=== PATIENT | male | born 1985 | race Caucasian/White ===

== ENCOUNTER 2018-12-10 10:14 | Emergency (ER) | payer SELFPAY ==
[~2018-12-10] VITALS: Ht 177.8 cm; Wt 95.3 kg
[~2018-12-10 10:14] MED LIST: AC500T PO; ACHD5005 PO; AMLO10TA82 PO; AMLO5TAB2 PO; ANTIBOTIC; CIPR250S2 PO; CLON-378 GT; CLON0.1T PO; ENLP10T PO; HYDR-34 PO; HYDR-757 PO; HYDR1CAP2 PO; HYDR1TAB PO; IBP200T PO; IBUP-1780 PO; KETO-22 PO; LISI10TA PO; LISI5TAB PO; MELO7.5T PO; MPR22T TP; NF-SKEL800 PO; NIAC1CAP PO; OXYC-12 PO; OXYC-272 PO; PRD20T PO; SULF1TAB38 PO; TRAM50TA2 PO; VICODIN PO; Vicodin 5/325; [UNRECOGNIZED DRUG - REMARK] PO
[2018-12-10 10:53] LABS: BILIRUBIN,URINE NEGATIVE (NEGATIVE); CLARITY,URINE CLEAR; COLOR,URINE AMBER; GLUCOSE, URINE (UA) NEGATIVE (NEGATIVE); KETONES,URINE NEGATIVE (NEGATIVE); LEUKOCYTE ESTERASE ,URINE NEGATIVE (NEGATIVE); NITRITE,URINE NEGATIVE (NEGATIVE); PH,URINE 5 (5-9); PROTEIN,URINE 1+ (NEGATIVE); UROBILINOGEN,URINE NORMAL (NORMAL)
[2018-12-10 11:00] LABS: BACTERIA,URINE NEGATIVE /HPF; HYALINE CASTS, URINE RARE /LPF; SQUAMOUS EPITHELIAL CELL,UR RARE /HPF
--- NOTE | 2018-12-10 11:08 | ED GU-Male ---
General Chief Complaint: -Male Stated Complaint: GROIN PAIN Nursing Triage Note: PT AMBULATED TO ROOM 7 PT CO OF TESTICULAR PAIN RATES 7/10 FOR 1.5 WEEKS, PT STATES HAS 3 YEAR HX OF PAIN IN TESTICLE. PT HAD STD FEW WEEKS AGO AND HAS NAUSEA NOT ABLE TO FINISH PO ANTIBIOTIC. PT STATES SMOKED POT LAST NIGHT AND HAS TAKEN OXYCODONE THIS AM Source: patient Exam Limitations: no limitations History of Present Illness Date Seen by Provider: Dec 10, 2018 Time Seen by Provider: 11:03 Initial Comments 33-year-old male who presents to the emergency room with complaints of bilateral testicular pain for one and half weeks. He reports that he was treated for STDs 2 weeks ago at the [facility] but the doxycycline that they put him on caused severe nausea and he did not finish the antibiotic. He reports that the antibiotics did help for a little while until they made him nauseated. He reports that he is taken oxycodone this morning for pain and that has helped but the pain is still there. He denies any penile discharge pain and burning with urination Timing/Duration: week (1.5) Severity/Quality: aching Location: scrotal Radiation: none Associated Symptoms: dysuria Allergies and Home Medications Allergies Coded Allergies: No Known Drug Allergies (Unverified , 03/15/13) Home Medications Clonidine HCl 0.1 Mg Tablet, 0.1 MG PO BID Prescribed by: JESSICA KARIMI on 10/18/16 175 Ibuprofen 800 Mg Tablet, 800 MG PO Q8H PRN for PAIN Prescribed by: JESSICA KARIMI on 10/18/16 175 Metaxalone 800 Mg Tablet, 800 MG PO Q6H PRN for SPASMS Prescribed by: TAMMY BENJAMIN on 01/11/16 172 Prednisone 20 Mg Tab, 20 MG PO TID Prescribed by: TAMMY BENJAMIN on 01/11/16 172 Tramadol HCl 50 Mg Tablet, 50-100 MG PO Q6H PRN for LBP Prescribed by: TAMMY BENJAMIN on 01/11/16 172 Patient Home Medication List Home Medication List Reviewed: Yes Review of Systems Review of Systems Constitutional: no symptoms reported, see HPI Genitourinary: see HPI, burning, dysuria, other (testicular pain bilaterally) All Other Systemes Reviewed Negative Unless Noted: Yes Past Sgyhkxq-Uuumwl-Zwgtdq Hx Past Med/Social Hx: Reviewed Nursing Past Med/Soc Hx Patient Social History Alcohol Use: Denies Use Recreational Drug Use: Yes Drug of Choice: POT Smoking Status: Current Everyday Smoker Type Used: Cigarettes Recent Foreign Travel: No Contact w/Someone Who Travel: No Recent Infectious Disease Expo: No Recent Hopitalizations: No Immunizations Up To Date Tetanus Booster (TDap): Less than 5yrs Date of Influenza Vaccine: Jul 07, 2013 Past Medical History Surgeries: Yes (hernia repair) Respiratory: No Cardiac: Yes (DOES NOT TAKE BP MEDS) Hypertension Neurological: No Reproductive Disorders: No Gastrointestinal: No Musculoskeletal: Yes Chronic Back Pain, Fractures Endocrine: No Cancer: No Psychosocial: No Integumentary: Yes (ABSCESSES/hx hives ) Recent Skin Changes Blood Disorders: No Family Medical History Reviewed Nursing Family Hx No Pertinent Family Hx Physical Exam Vital Signs Vital Signs - First Documented 12/10/18 10:20 Temp 96.3 Pulse 107 Resp 20 B/P (MAP) 112/98 (103) Pulse Ox 100 Capillary Refill : Less Than 3 Seconds Height, Weight, BMI Height: 5'10.00" Weight: 210lbs. oz. 95.503550cz; 27.89 BMI Method:Stated General Appearance: WD/WN, no apparent distress Cardiovascular: normal peripheral pulses, regular rate, rhythm, no edema, no gallop, no JVD, no murmur Respiratory: chest non-tender, lungs clear, normal breath sounds, no respiratory distress, no accessory muscle use Male: normal genitalia, testicular tenderness (bilaterally), other (no redness or swelling noted to the testicles cremasteric reflex is present.) Extremities: normal capillary refill Neurologic/Psychiatric: alert, normal mood/affect, oriented x 3 Skin: normal color, warm/dry Progress/Results/Core Measures Suspected Sepsis Recent Fever Within 48 Hours: No Infection Criteria Present: None New/Unexplained Altered Menta: No Sepsis Screen: No Definite Risk SIRS Temperature:96.3 Pulse: 107 Respiratory Rate: 20 Blood Pressure 112 /98 Mean: 103 Results/Orders Lab Results Laboratory Tests Test 12/10/18 10:40 Range/Units Urine Color ARIANNA H Urine Clarity CLEAR Urine pH 5 5-9 Urine Specific [place] 1.030 H 1.016-1.022 Urine Protein 1+ H NEGATIVE Urine Glucose (UA) NEGATIVE NEGATIVE Urine Ketones NEGATIVE NEGATIVE Urine Nitrite NEGATIVE NEGATIVE Urine Bilirubin NEGATIVE NEGATIVE Urine Urobilinogen NORMAL NORMAL MG/DL Urine Leukocyte Esterase NEGATIVE NEGATIVE Urine RBC (Auto) NEGATIVE NEGATIVE Urine RBC NONE /HPF Urine WBC NONE /HPF Urine Squamous Epithelial Cells RARE /HPF Urine Crystals NONE /LPF Urine Bacteria NEGATIVE /HPF Urine Casts PRESENT /LPF Urine Hyaline Casts RARE /LPF Urine Mucus NEGATIVE /LPF Urine Culture Indicated NO Urine Chlamydia trachomatis RNA Not Detected Not Detected Urine Neisseria gonorrhoeae RNA Not Detected Not Detected My Orders Orders - KOREY GALVAN Azithromycin Tablet (Zithromax Tablet) (12/10/18 11:30) Ceftriaxone For Im Use (Rocephin For Im (12/11/18 09:00) Lidocaine 1% Inj 20 Ml (Xylocaine 1% Inj (12/10/18 11:30) Ceftriaxone For Iv Use (Rocephin For I (12/10/18 11:33) Vital Signs/I&O 12/10/18 12/10/18 10:20 12:03 Temp 96.3 Pulse 107 88 Resp 20 20 B/P (MAP) 112/98 (103) 112/98 (103) Pulse Ox 100 100 Capillary Refill : Less Than 3 Seconds Blood Pressure Mean: 103 Departure Impression Primary Impression: Sexually transmitted disease Disposition: 01 HOME, SELF-CARE Condition: Stable/Unchanged Departure-Patient Inst. Decision time for Depature: 11:09 Referrals: LUIZ CASTAÑEDA DO (PCP/Family) Primary Care Physician Patient Instructions: Sexually-Transmitted Diseases (DC) Add. Discharge Instructions: Follow-up with [facility] within 1 week for recheck. Return back to the emergency room for worsening symptoms or concerns as needed. All discharge instructions reviewed with patient and/or family. Voiced understanding. Work/School Note: Work Release Form Date Seen in the Emergency Department: Dec 10, 2018 Return to Work: Dec 11, 2018 Restrictions: No Restrictions KOREY GALVAN Dec 10, 2018 11:08
[2018-12-10] MEDS ORDERED: AZITHROMYCIN 250 MG TAB (ZITHROMAX) PO SCH (11:30)
[2018-12-10] MEDS ORDERED: LIDOCAINE 1% INJ 20 ML 20 ML VIAL INJ ONE (11:30)
[2018-12-10] MEDS ORDERED: cefTRIAXone 1,000 MG IV (ROCEPHIN) VIAL ONE (11:33)
[2018-12-10 12:03] VITALS: BP 112/98
[2018-12-11] MEDS ORDERED: cefTRIAXone 1,000 MG/2.86 ml vial (IM ONLY) IM SCH (09:00)
== END 2018-12-10 12:05 | disposition home or self-care (01) ==
LOC: EDUNIT# 10:14 → ER 10:16
DX: A64 Unspecified sexually transmitted disease (principal); I10 Essential (primary) hypertension; F17.210 Nicotine dependence, cigarettes, uncomplicated; Z98.890 Other specified postprocedural states
CPT/HCPCS: 36415; 81000; 87491; 87591; 99284

== ENCOUNTER 2019-01-08 14:00 | Emergency (ER) | payer SELFPAY ==
[~2019-01-08] VITALS: Ht 177.8 cm; Wt 97.5 kg
--- NOTE | 2019-01-08 14:10 | NUR ---
REPORTS HEADACHE. REPORTS PAIN BECOMES WORSE WHILE TAKING A DEEP BREATH.
[2019-01-08] MEDS ORDERED: ASPIRIN 81 MG CHEW (CHILDREN'S ASA) PO ONE (14:15)
[2019-01-08 14:22] LABS: BASOPHILS % (AUTO) 0 % (0-10); EOSINOPHILS # (AUTO) 0.2 10^3/uL (0.0-0.3); EOSINOPHILS % (AUTO) 1 % (0-10); HEMATOCRIT 45 % (40-54); HEMOGLOBIN 15.7 G/DL (13.3-17.7); LYMPHOCYTES # (AUTO) 1.8 X 10^3 (1.0-4.0); LYMPHOCYTES % (AUTO) 14 % (12-44); MEAN CORPUSCULAR HEMOGLOBIN 31 PG (25-34); MEAN CORPUSCULAR HGB CONC 35 G/DL (32-36); MEAN CORPUSCULAR VOLUME 88 FL (80-99); MEAN PLATELET VOLUME 9.8 FL (7.4-10.4); MONOCYTES # (AUTO) 0.9 X 10^3 (0.0-1.0); MONOCYTES % (AUTO) 7 % (0-12); NEUTROPHILS # (AUTO) 10.4 X 10^3 (1.8-7.8); NEUTROPHILS % (AUTO) 78 % (42-75); PLATELET COUNT 274 10^3/uL (130-400); RED CELL DISTRIBUTION WIDTH 13.1 % (10.0-14.5); WHITE BLOOD COUNT 13.3 10^3/uL (4.3-11.0)
[2019-01-08 14:34] LABS: ALANINE AMINOTRANSFERASE 13 U/L (0-55); ALBUMIN 4.5 GM/DL (3.2-4.5); ALKALINE PHOSPHATASE 52 U/L (40-136); BILIRUBIN,TOTAL 0.4 MG/DL (0.1-1.0); BUN/CREATININE RATIO 13; CALCIUM 9.4 MG/DL (8.5-10.1); CARBON DIOXIDE 30 MMOL/L (21-32); CHLORIDE 99 MMOL/L (98-107); CREATININE SERUM 1.16 MG/DL (0.60-1.30); GFR ESTIMATED > 60; GLUCOSE 98 MG/DL (70-105); MAGNESIUM 2.1 MG/DL (1.8-2.4); POTASSIUM 3.8 MMOL/L (3.6-5.0); SODIUM 137 MMOL/L (135-145); TOTAL PROTEIN 7.1 GM/DL (6.4-8.2)
[2019-01-08 14:40] LABS: MYOGLOBIN SERUM 40.1 NG/ML (10.0-92.0)
--- NOTE | 2019-01-08 14:52 | ED General ---
General Chief Complaint: Chest Pain Stated Complaint: LEFT CHEST AND SHOULDER PAIN Source of Information: Patient Exam Limitations: No Limitations (JESSICA KARIMI MD) Nursing Triage Note: PT AMB TO ROOM #5 HOLDING CHEST. A&OX4. C/O LT SIDED CHEST PAIN RADIATING DOWN LT ARM. PT REPORTS @ APPROX 0800 THIS AM WHILE DRIVING TO WORK, CHEST PAIN BEGAN. REPORTS THROUGHOUT MORNING PAIN INCREASED. PT STATES, "IT GOT SO BAD I COULD NOT WORK ANYMORE." DESCRIBES PAIN STABBING. (KOREY GALVAN) History of Present Illness Date Seen by Provider: Jan 08, 2019 Time Seen by Provider: 14:20 (JESSICA KARIMI MD) Initial Comments 33-year-old male who presents to the emergency room with complaints of left shoulder pain that radiates to his left chest wall and up into his left side of his neck. He reports that this pain started around 8 AM this morning. He denies shortness of breath, nausea, vomiting, dizziness, lightheadedness. He reports that the pain is worse with range of motion of the left shoulder and worse when he touches his left chest. Associated Systoms: Chest Pain; No Nausea/Vomiting, No Shortness of Air, No Syncope, No Weakness (KOREY GALVAN) Allergies and Home Medications Allergies Coded Allergies: No Known Drug Allergies (Unverified , 03/15/13) Home Medications Clonidine HCl 0.1 Mg Tablet, 0.1 MG PO BID Prescribed by: JESSICA KARIMI on 10/18/16 175 Cyclobenzaprine HCl 10 Mg Tablet, 10 MG PO Q8H Prescribed by: KOREY GALVAN on 01/08/19 1739 Ibuprofen 800 Mg Tablet, 800 MG PO Q8H PRN for PAIN Prescribed by: JESSICA KARIMI on 10/18/16 1754 Metaxalone 800 Mg Tablet, 800 MG PO Q6H PRN for SPASMS Prescribed by: TAMMY BENJAMIN on 01/11/16 172 Prednisone 20 Mg Tab, 20 MG PO TID Prescribed by: TAMMY BENJAMIN on 01/11/16 172 Tramadol HCl 50 Mg Tablet, 50-100 MG PO Q6H PRN for LBP Prescribed by: TAMMY BENJAMIN on 01/11/16 1728 Patient Home Medication List Home Medication List Reviewed: Yes (KOREY GALVAN) Review of Systems Review of Systems Constitutional: see HPI; No dizziness Cardiovascular: see HPI, chest pain (left chest wall pain) Musculoskeletal: see HPI, joint pain (and left shoulder pain), neck pain (left- sided neck pain) (KOREY GALVAN) All Other Systems Reviewed Negative Unless Noted: Yes (KOREY GALVAN) Past Whulohz-Lckxkh-Utjhkx Hx Past Med/Social Hx: Reviewed Nursing Past Med/Soc Hx (KOREY GALVAN) Patient Social History Drug of Choice: POT Type Used: Cigarettes Recent Foreign Travel: No Contact w/Someone Who Travel: No Recent Hopitalizations: No (JESSICA KARIMI MD) Immunizations Up To Date Tetanus Booster (TDap): Less than 5yrs Date of Influenza Vaccine: Jul 07, 2013 (JESSICA KARIMI MD) Past Medical History Surgeries: Yes (hernia repair) Respiratory: No Cardiac: Yes (DOES NOT TAKE BP MEDS) Hypertension Neurological: No Reproductive Disorders: No Gastrointestinal: No Musculoskeletal: Yes Chronic Back Pain, Fractures Endocrine: No Cancer: No Psychosocial: No Integumentary: Yes (ABSCESSES/hx hives ) Recent Skin Changes Blood Disorders: No (JESSICA KARIMI MD) Family Medical History Reviewed Nursing Family Hx (KOREY GALVAN) No Pertinent Family Hx (JESSICA KARIMI MD) Physical Exam Vital Signs Vital Signs - First Documented (KOREY GALVAN) Vital Signs Capillary Refill : (JESSICA KARIMI MD) Height, Weight, BMI Height: 5'10.00" Weight: 210lbs. oz. 95.214149cq; 27.89 BMI Method:Stated (JESSICA KARIMI MD) General Appearance: No Apparent Distress, WD/WN HEENT: PERRL/EOMI, TMs Normal, Normal ENT Inspection, Pharynx Normal Neck: Full Range of Motion, Normal Inspection, Supple, Tender Lateral (left lateral tenderness) Respiratory: Lungs Clear, Normal Breath Sounds, No Accessory Muscle Use, No Respiratory Distress, Other (left chest wall is tender on palpation) Cardiovascular: Regular Rate, Rhythm, No Edema, No Gallop, No JVD, No Murmur, Normal Peripheral Pulses Neurologic/Psychiatric: Alert, Oriented x3, Normal Mood/Affect Skin: Normal Color, Warm/Dry (KOREY GALVAN) Progress/Results/Core Measures Suspected Sepsis SIRS Temperature: Pulse: Respiratory Rate: Laboratory Tests 01/08/19 14:12: White Blood Count 13.3H Blood Pressure / Mean: Laboratory Tests 01/08/19 14:12: Creatinine 1.16, INR Comment 1.0, Platelet Count 274, Total Bilirubin 0.4 (JESSICA KARIMI MD) Results/Orders Lab Results (KOREY GALVAN) My Orders (KOREY GALVAN) Medications Given in ED (KOREY GALVAN) Vital Signs/I&O (KOREY GALVAN) Vital Signs/I&O Capillary Refill : (JESSICA KARIMI MD) Progress Note : Time: 15:48 Progress Note I have seen and evaluated the patient. I have informed him of his laboratory and imaging studies. We will be repeating a 2 hour troponin. He is having relief of symptoms after Toradol and Norflex administration. 1721: Patient received a does of fentanyl for additional pain relief, repeat troponin was negative, he agrees with plan of care, plans for discharge, return precautions were given. (KOREY GALVAN) ECG Initial ECG Impression Date: Jan 08, 2019 Initial ECG Impression Time: 14:01 Initial ECG Rate: 77 Initial ECG Rhythm: Normal Sinus Initial ECG Intervals: Normal Initial ECG Impression: Normal Initial ECG Comparisson: Unchanged Comment Negative for STEMI. Reviewed by Dr. Karimi unchanged from EKG 02/07 2009. (KOREY GALVAN) Diagnostic Imaging Diagonstic Imaging: Xray Plain Films/CT/US/NM/MRI: chest, other (shoulder) Comments NAME: KAMRAN SANCHEZ [facility] REC#: [id number] PHYSICIAN: KOREY GALVAN CC: KOREY GALVAN; MER NEWMAN MD Page 1 of 1 RADIOLOGY REPORT [facility] [place], [place] CC: KOREY GALVAN; MER NEWMAN MD Page 1 of 1 RADIOLOGY REPORT NAME: KAMRAN SANCHEZ [facility] REC#: [id number] PT STATUS: REG ER : 1985 PHYSICIAN: KOREY GALVAN ADMIT DATE: 01/08/19/ER Signed Date of Exam: 03/05/19 SHOULDER, LEFT, 3 VIEWS Indication: Left shoulder pain. AP, oblique, and transscapular views of the left shoulder are obtained. No fracture or dislocation is seen. There is no acute bony abnormality. Glenohumeral joint and AC joint are unremarkable. Impression: Negative left shoulder. Dictated by: Dictated on workstation # [id number] Dict: 01/08/19 1653 Trans: 01/08/191717 Interpreted by: MER NEWMAN MD Electronically signed by: MER NEWMAN MD 01/08/19 1718 NAME: KAMRAN SANCHEZ [facility] REC#: [id number] PHYSICIAN: JESSICA KARIMI MD CC: ANITA MALHOTRA MD; JESSICA KARIMI MD Page 1 of 1 RADIOLOGY REPORT [facility] [place], [place] CC: ANITA MALHOTRA MD; JESSICA KARIMI MD Page 1 of 1 RADIOLOGY REPORT NAME: KAMRAN SANCHEZ [facility] REC#: [id number] PT STATUS: REG ER : 1985 PHYSICIAN: JESSICA KARIMI MD ADMIT DATE: 01/08/19/ER Signed Date of Exam: 01/08/19 CHEST 1 VIEW, AP/PA ONLY INDICATION: Pain and swelling. FINDINGS: The heart size, mediastinal configuration, and pulmonary vascularity are within normal limits. There is no pleural effusion, pneumothorax, or pneumonia. The osseous structures are unremarkable. IMPRESSION: No acute cardiopulmonary abnormality. Dictated by: Dictated on workstation # [id number] Dict: 01/08/19 1438 Trans: 01/08/19 1456 Interpreted by: ANITA MALHOTRA MD Electronically signed by: ANITA MALHOTRA MD 01/08/19 1456 Reviewed: Reviewed by Me (KOREY GALVAN) Departure Impression Primary Impression: Illicit drug use Additional Impressions: Atypical chest pain Muscle spasm of left shoulder Disposition: 01 HOME, SELF-CARE Condition: Stable/Unchanged Departure-Patient Inst. Decision time for Depature: 17:21 (KOREY GALVAN) Referrals: LUIZ CASTAÑEDA DO (PCP/Family) Primary Care Physician Patient Instructions: Chest Pain That Is Not Caused by the Heart (DC), Shoulder Sprain Add. Discharge Instructions: Ice to the sore areas at 20 minute intervals. Take medications as directed. Ibuprofen and Tylenol as directed by the bottle for pain relief. Follow-up with your primary care provider within 1 week for recheck. Return back to the emergency room for worsening symptoms or concerns as needed. All discharge instructions reviewed with patient and/or family. Voiced understanding. Scripts Cyclobenzaprine HCl (Cyclobenzaprine HCl) 10 Mg Tablet 10 MG PO Q8H, #10 TAB Prov: KOREY GALVAN 01/08/19 JESSICA KARIMI MD Jan 08, 2019 14:52 KOREY GALVAN Jan 08, 2019 15:10
[2019-01-08] MEDS ORDERED: ORPHENADRINE 60 MG/2 ML (NORFLEX) AMP IM ONE (15:15)
[2019-01-08] MEDS ORDERED: KETOROLAC 30 MG/ML VIAL IVP ONE (15:15)
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
[2019-01-08 15:27] LABS: BILIRUBIN,URINE NEGATIVE (NEGATIVE); CLARITY,URINE VERY CLOUDY; COLOR,URINE YELLOW; GLUCOSE, URINE (UA) NEGATIVE (NEGATIVE); KETONES,URINE NEGATIVE (NEGATIVE); LEUKOCYTE ESTERASE ,URINE NEGATIVE (NEGATIVE); NITRITE,URINE NEGATIVE (NEGATIVE); PH,URINE 7 (5-9); PROTEIN,URINE NEGATIVE (NEGATIVE); UROBILINOGEN,URINE NORMAL (NORMAL)
--- NOTE | 2019-01-08 15:30 | NUR ---
REPORTS LT SHOULDER AND NECK PAIN.
[2019-01-08 15:38] LABS: BACTERIA,URINE MODERATE /HPF; SQUAMOUS EPITHELIAL CELL,UR RARE /HPF; WBC,URINE RARE /HPF
[2019-01-08 15:39] LABS: AMORPHOUS SEDIMENT,UR MOD AMOR URATES /LPF
[2019-01-08 15:40] LABS: AMPHETAMINE SCREEN, URINE POSITIVE (NEGATIVE); BARBITURATE SCREEN URINE NEGATIVE (NEGATIVE); BENZODIAZEPINES SCREEN URINE NEGATIVE (NEGATIVE); CANNABINOID SCREEN, URINE POSITIVE (NEGATIVE); COCAINE SCREEN URINE NEGATIVE (NEGATIVE); METHADONE STAT NEGATIVE (NEGATIVE); METHAMPHETAMINE SCREEN URINE S NEGATIVE (NEGATIVE); OPIATE SCREEN URINE NEGATIVE (NEGATIVE); OXYCODONE STAT POSITIVE (NEGATIVE); PROPOXYPHENE STAT NEGATIVE (NEGATIVE); TRICYCLIC ANTIDEPRESSANTS SCRE NEGATIVE (NEGATIVE)
--- NOTE | 2019-01-08 16:50 | Diagnostic Imaging Report ---
INDICATION: Pain and swelling. FINDINGS: The heart size, mediastinal configuration, and pulmonary vascularity are within normal limits. There is no pleural effusion, pneumothorax, or pneumonia. The osseous structures are unremarkable. IMPRESSION: No acute cardiopulmonary abnormality. Dictated by: Dictated on workstation # [id number]
--- NOTE | 2019-01-08 16:56 | Diagnostic Imaging Report ---
Indication: Left shoulder pain. AP, oblique, and transscapular views of the left shoulder are obtained. No fracture or dislocation is seen. There is no acute bony abnormality. Glenohumeral joint and AC joint are unremarkable. Impression: Negative left shoulder. Dictated by: Dictated on workstation # [id number]
[2019-01-08] MEDS ORDERED: fentaNYL INJECTION 100 MCG/2 ML AMP IVP ONE (17:30)
[2019-01-08] MEDS ORDERED: CYCL10TA9 PO (17:39)
[2019-01-08 17:50] VITALS: BP 145/108
--- NOTE | 2019-01-08 17:50 | NUR ---
THIS RN NOTIFIED PT ATTEMPTED TO LEAVE ED WITH IV STILL ACCESSED. D/C INSTRUCTIONS REVIEWED WITH PT @ REGISTRATION DESK, IV ACCESS DC'D. PT AMB TO D/C W/O DIFFICULTY. A&OX4. D/C INSTRUTIONS REVIEWED WITH SPOUSE IN ROOM WITH PROVIDER.
== END 2019-01-08 17:50 | disposition home or self-care (01) ==
LOC: ER 14:00
DX: R07.89 Other chest pain (principal); M62.838 Other muscle spasm; F19.10 Other psychoactive substance abuse, uncomplicated; I10 Essential (primary) hypertension; Z79.52 Long term (current) use of systemic steroids; Z98.890 Other specified postprocedural states
CPT/HCPCS: 36415; 71045; 73030; 80053; 80306; 81000; 83735; 83874; 84484; 85025; 85379; 85610; 85730; 87088; 93005; 93041

== ENCOUNTER → 2019-01-23 | Outpatient (CLI) | payer OTHER ==
[~2019-01-23] MED LIST changes: +CYCL10TA9 PO
--- NOTE | 2019-01-23 15:55 | Diagnostic Imaging Report ---
EXAMINATION: Magnetic resonance imaging of the left shoulder without contrast. DATE: January 23, 2019. COMPARISON: Left shoulder radiographs of January 08, 2019. HISTORY: 33-year-old male, left shoulder pain. TECHNIQUE: Magnetic Resonance Imaging sequences were performed of the shoulder without contrast. FINDINGS: ROTATOR CUFF, LIGAMENTS, TENDONS, AND MUSCLES: The supraspinatus, infraspinatus, teres minor, and subscapularis tendons and muscles are intact. There is normal rotator cuff muscle bulk and signal. LONG HEAD OF BICEPS: The biceps labral attachment and long head of the biceps tendon are intact. The long head of the biceps tendon is normally positioned within the bicipital groove. GLENOHUMERAL JOINT: The humeral head is well positioned relative to the glenoid. The labrum is grossly intact. There is no identified paralabral cyst. The articular cartilage is grossly intact. There is no joint effusion. ACROMIOCLAVICULAR JOINT: The acromioclavicular joint is normally aligned. The coracoclavicular and coracoacromial ligaments are intact. There are no degenerative changes of the acromioclavicular joint. BONE: The bones all have normal configuration. The bone marrow signal is within normal limits. Specifically, negative for fracture, osteomyelitis, osteonecrosis, or marrow replacing process. BURSAE AND SOFT TISSUES: The bursae and soft tissue surrounding the shoulder are unremarkable. IMPRESSION: Unremarkable MRI left shoulder. Dictated by: Dictated on workstation # [id number]
== END ==
LOC: RAD 13:04
PROVIDERS: ATTEND Nurse Practitioner Community Health
DX: M25.512 Pain in left shoulder (principal)
CPT/HCPCS: 73221

== ENCOUNTER 2020-02-17 11:15 | Outpatient (CLI) | payer MEDICAID, OTHER ==
[~2020-02-17 11:15] MED LIST changes: -TRAM50TA2 PO; +TRM50T PO
[2020-02-17] MEDS ORDERED: LISI40TA PO (11:30)
[2020-02-17] MEDS ORDERED: AMLO10TA4 PO (11:30)
[2020-02-17] MEDS ORDERED: HYDR-83 PO (11:30)
[2020-02-17] MEDS ORDERED: PANT40TA3 PO (11:30)
[2020-02-18] MEDS ORDERED: SUCR1TAB36 PO (09:40)
== END 2020-02-17 11:34 ==
LOC: PREOP 11:15
PROVIDERS: ATTEND Surgery
DX: Z01.818 Encounter for other preprocedural examination (principal)

== ENCOUNTER 2022-03-18 09:55 | Observation (INO) | payer MEDICAID ==
[~2022-03-18] VITALS: Ht 177.8 cm; Wt 85.3 kg
[~2022-03-18 09:55] MED LIST changes: +AMLO10TA4 PO; +CLN.1T PO; -CLON0.1T PO; +CYCL10TA25 PO; -CYCL10TA9 PO; +LISI40TA9 PO; +PANT40TA52 PO; +SUCR1TAB36 PO
[2022-03-18] MEDS ORDERED: NS IV 1000 ML 1,000 ML IV SCH (10:30)
[2022-03-18 10:43] LABS: BASOPHILS % (AUTO) 0 % (0-10); EOSINOPHILS # (AUTO) 0.1 10^3/uL (0.0-0.3); EOSINOPHILS % (AUTO) 1 % (0-10); HEMATOCRIT 49 % (40-54); HEMOGLOBIN 17.1 g/dL (13.3-17.7); LYMPHOCYTES # (AUTO) 1.7 10^3/uL (1.0-4.0); LYMPHOCYTES % (AUTO) 26 % (12-44); MEAN CORPUSCULAR HEMOGLOBIN 30 pg (25-34); MEAN CORPUSCULAR HGB CONC 35 g/dL (32-36); MEAN CORPUSCULAR VOLUME 86 fL (80-99); MONOCYTES # (AUTO) 0.5 10^3/uL (0.0-1.0); MONOCYTES % (AUTO) 8 % (0-12); NEUTROPHILS # (AUTO) 4.2 10^3/uL (1.8-7.8); NEUTROPHILS % (AUTO) 65 % (42-75); PLATELET COUNT 278 10^3/uL (130-400); WHITE BLOOD COUNT 6.5 10^3/uL (4.3-11.0)
[2022-03-18 10:54] LABS: ALBUMIN 4.9 GM/DL (3.2-4.5); CHLORIDE 96 MMOL/L (98-107); POTASSIUM 5.8 MMOL/L (3.6-5.0); SODIUM 128 MMOL/L (135-145)
[2022-03-18 10:55] LABS: CALCIUM 9.5 MG/DL (8.5-10.1)
[2022-03-18 10:56] LABS: GLUCOSE 90 MG/DL (70-105)
[2022-03-18 10:57] LABS: TOTAL PROTEIN 7.9 GM/DL (6.4-8.2)
[2022-03-18 10:58] LABS: CARBON DIOXIDE 19 MMOL/L (21-32)
[2022-03-18 10:59] LABS: BILIRUBIN,TOTAL 1.2 MG/DL (0.1-1.0)
[2022-03-18 11:00] LABS: ALKALINE PHOSPHATASE 48 U/L (40-136); CREATININE SERUM 1.48 MG/DL (0.60-1.30); GFR ESTIMATED 62
[2022-03-18 11:01] LABS: BUN/CREATININE RATIO 16
[2022-03-18 11:03] LABS: ALANINE AMINOTRANSFERASE 25 U/L (0-55); MAGNESIUM 1.8 MG/DL (1.6-2.4)
[2022-03-18 11:15] LABS: BILIRUBIN,URINE NEGATIVE (NEGATIVE); CLARITY,URINE CLEAR; COLOR,URINE YELLOW; GLUCOSE, URINE (UA) NEGATIVE (NEGATIVE); KETONES,URINE TRACE (NEGATIVE); LEUKOCYTE ESTERASE ,URINE NEGATIVE (NEGATIVE); NITRITE,URINE NEGATIVE (NEGATIVE); PROTEIN,URINE NEGATIVE (NEGATIVE)
--- NOTE | 2022-03-18 11:17 | ED General ---
General Chief Complaint: General Problems/Pain Stated Complaint: CONFUSION - SOA - HANDS & FEET TINGLING Nursing Triage Note: PT AMB TO RM 5 W REPORTS OF EXPERINCING SELF DIAGNOSED HEAT EXHAUSTION ON MONDAY. PT WAS TAKING EXCESS AMOUNT OF POTASSIUM TO HELP W HEAT EXHAUSTION. PT TO ED FROM [facility] FOR HYPERKALEMIA. PT C/O TINGLING FEET, SOA, AND MILD CONFUSION. PT A&OX4, NO PAIN REPORTED. Source of Information: Patient Exam Limitations: No Limitations History of Present Illness Date Seen by Provider: March 18, 2022 Time Seen by Provider: 10:34 Initial Comments Patient to the ER by private conveyance from the clinic with chief complaint that he had a potassium of 6.2. He says been dehydrated the past several days feeling weak and having leg cramps and some tingling in his fingers and toes. He was taking potassium tablets because he has chronic cramping. He started taking 20 tablets of 99 mg potassium in the morning and 10 tablets in the evening. His symptoms did not improve. He walked out to get in his truck to go to work this morning and just felt so tired he had to sit and catch his breath. He does not have any chest pain or shortness of air now. He does not have any known heart disease hypertension or kidney disease. He is followed by [facility] for primary care. Symptoms started after he says he got exhausted on Monday. Allergies and Home Medications Allergies Coded Allergies: No Known Drug Allergies (Unverified , 02/17/20) Patient Home Medication List Home Medication List Reviewed: Yes Amlodipine Besylate (Norvasc) 10 Mg Tablet, 10 MG PO DAILY, (Reported) Entered as Reported by: KIARA PORTER on 02/17/20 1130 Hydrocodone/Acetaminophen (Hydrocodone-Acetamin 5-325 mg) 1 Each Tablet, 1 EACH PO PRN, (Reported) Entered as Reported by: KIARA PORTER on 02/17/20 1130 Lisinopril (Lisinopril) 40 Mg Tablet, 40 MG PO DAILY, (Reported) Entered as Reported by: KIARA PORTER on 02/17/20 1130 Pantoprazole Sodium (Pantoprazole Sodium) 40 Mg Tablet.dr, 40 MG PO DAILY, (Reported) Entered as Reported by: KIARA PORTER on 02/17/20 1130 Sucralfate (Carafate) 1 Gm Tablet, 1 GM PO QID Prescribed by: WALLACE LOERA on 02/18/20 0940 Review of Systems Review of Systems Constitutional: No chills, No fever; malaise, weakness EENTM: No ear discharge, No ear pain Respiratory: No cough, No hemoptysis Cardiovascular: No chest pain, No palpitations Gastrointestinal: No abdominal pain, No nausea Genitourinary: No discharge, No dysuria Musculoskeletal: No back pain, No joint pain All Other Systems Reviewed Negative Unless Noted: Yes Past Kfivruh-[id number]-Phrxrk Hx Patient Social History Tobacco Use?: Yes Tobacco type used: Cigarettes Smoking Status: Current Everyday Smoker Use of E-Cig and/or Vaping dev: No Substance use?: Yes Substance type: Marijuana Alcohol Use?: No Pt feels they are or have been: No Immunizations Up To Date Tetanus Booster (TDap): Less than 5yrs Influenza Vaccine Up-to-Date: No; Not Current First/Initial COVID19 Vaccinat: N/A Second COVID19 Vaccination [place]: N/A Third COVID19 Vaccination Date: N/A 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 Seasonal Allergies Seasonal Allergies: No Past Medical History Surgeries: Yes (hernia repair) Abdominal Respiratory: Yes COPD Cardiac: Yes Hypertension Neurological: No Reproductive Disorders: No Sexually Transmitted Disease: No HIV/AIDS: No Genitourinary: No Gastrointestinal: Yes Gastroesophageal Reflux, Chronic Diarrhea Musculoskeletal: Yes Chronic Back Pain, Fractures Endocrine: No HEENT: No Loss of Vision: Denies Hearing Impairment: Denies Cancer: No Psychosocial: No Integumentary: No Recent Skin Changes Blood Disorders: No Adverse Reaction/Blood Tranf: No (N/A) Family Medical History Colon cancer No Pertinent Family Hx Physical Exam Vital Signs Vital Signs - First Documented 03/18/22 10:04 Temp 36.1 Pulse 67 Resp 20 B/P (MAP) 123/94 (104) Pulse Ox 99 O2 Delivery Room Air Capillary Refill : Less Than 3 Seconds Height, Weight, BMI Height: 5'10.00" Weight: 215lbs. oz. [id number]; 26.00 BMI Method:Stated General Appearance: No Apparent Distress, WD/WN Eyes: Bilateral Eye Normal Inspection, Bilateral Eye PERRL, Bilateral Eye EOMI HEENT: PERRL/EOMI, Pharynx Normal, Moist Mucous Membranes Neck: Full Range of Motion, Normal Inspection Respiratory: Lungs Clear, Normal Breath Sounds, No Accessory Muscle Use, No Respiratory Distress Cardiovascular: Regular Rate, Rhythm, No Edema, Normal Peripheral Pulses Gastrointestinal: Normal Bowel Sounds, Non Tender, Soft Extremity: Normal Capillary Refill, Normal Inspection, No Pedal Edema Neurologic/Psychiatric: Alert, Oriented x3, No Motor/Sensory Deficits Skin: Normal Color, Warm/Dry Progress/Results/Core Measures Suspected Sepsis SIRS Temperature: Pulse: 67 Respiratory Rate: 20 Laboratory Tests 03/18/22 10:20: White Blood Count 6.5 Blood Pressure 123 /94 Mean: 104 Laboratory Tests 03/18/22 10:20: Creatinine 1.48H, Platelet Count 278, Total Bilirubin 1.2H Results/Orders Lab Results Laboratory Tests Test 03/18/22 10:20 Range/Units White Blood Count 6.5 4.3-11.0 10^3/uL Red Blood Count 5.69 H 4.30-5.52 10^6/uL Hemoglobin 17.1 13.3-17.7 g/dL Hematocrit 49 40-54 % Mean Corpuscular Volume 86 80-99 fL Mean Corpuscular Hemoglobin 30 25-34 pg Mean Corpuscular Hemoglobin Concent 35 32-36 g/dL Red Cell Distribution Width 12.2 10.0-14.5 % Platelet Count 278 130-400 10^3/uL Mean Platelet Volume 10.0 9.0-12.2 fL Immature Granulocyte % (Auto) 0 % Neutrophils (%) (Auto) 65 42-75 % Lymphocytes (%) (Auto) 26 12-44 % Monocytes (%) (Auto) 8 0-12 % Eosinophils (%) (Auto) 1 0-10 % Basophils (%) (Auto) 0 0-10 % Neutrophils # (Auto) 4.2 1.8-7.8 10^3/uL Lymphocytes # (Auto) 1.7 1.0-4.0 10^3/uL Monocytes # (Auto) 0.5 0.0-1.0 10^3/uL Eosinophils # (Auto) 0.1 0.0-0.3 10^3/uL Basophils # (Auto) 0.0 0.0-0.1 10^3/uL Immature Granulocyte # (Auto) 0.0 0.0-0.1 10^3/uL Sodium Level 128 L 135-145 MMOL/L Potassium Level 5.8 H 3.6-5.0 MMOL/L Chloride Level 96 L 98-107 MMOL/L Carbon Dioxide Level 19 L 21-32 MMOL/L Anion Gap 13 5-14 MMOL/L Blood Urea Nitrogen 23 H 7-18 MG/DL Creatinine 1.48 H 0.60-1.30 MG/DL Estimat Glomerular Filtration Rate 62 BUN/Creatinine Ratio 16 Glucose Level 90 70-105 MG/DL Calcium Level 9.5 8.5-10.1 MG/DL Corrected Calcium 8.5-10.1 MG/DL Magnesium Level 1.8 1.6-2.4 MG/DL Total Bilirubin 1.2 H 0.1-1.0 MG/DL Aspartate Amino Transf (AST/SGOT) 37 H 5-34 U/L Alanine Aminotransferase (ALT/SGPT) 25 0-55 U/L Alkaline Phosphatase 48 40-136 U/L Total Protein 7.9 6.4-8.2 GM/DL Albumin 4.9 H 3.2-4.5 GM/DL My Orders Orders - [facility] Ekg Tracing (03/18/22 10:26) Continuous Ekg Monitoring (03/18/22 10:26) Cbc With Automated Diff (03/18/22 10:26) Comprehensive Metabolic Panel (03/18/22 10:26) Magnesium (03/18/22 10:26) Ua Culture If Indicated (03/18/22 10:26) Ed Iv/Invasive Line Start (03/18/22 10:26) Ns Iv 1000 Ml (Sodium Chloride 0.9%) (03/18/22 10:30) Vital Signs/I&O 03/18/22 10:04 Temp 36.1 Pulse 67 Resp 20 B/P (MAP) 123/94 (104) Pulse Ox 99 O2 Delivery Room Air Capillary Refill : Less Than 3 Seconds Blood Pressure Mean: 104 Progress Note : Time: 11:15 Progress Note His potassium is a little better. We started a liter of normal saline. His sodium however is quite low and he has a borderline acute kidney injury with a creatinine of 1.48 with a baseline of 1. We discussed overnight bringing his sodium up with some normal saline and the patient agreed to this plan. ECG Initial ECG Impression Date: March 18, 2022 Initial ECG Impression Time: 10:38 Initial ECG Rate: 66 Initial ECG Rhythm: Normal Sinus Initial ECG Intervals: Normal Initial ECG Impression: Normal Initial ECG Comparisson: Unchanged Comment Normal sinus rhythm without clinically relevant ST elevation or depression. Mildly tented T waves. EKG : EKG Time: 09:22 Rate: 63 Rhythm: Normal Sinus Intervals: Normal Intervals Normal sinus rhythm with no ST elevation or depression. Mildly tented T waves noted. ECG Comparisson: Unchanged Departure Communication (Admissions) Time/Spoke to Admitting Phy: 11:10 Discussed the case with Dr. Price who is covering for Dr. Bourgeois for [facility] and he agrees to observe the patient overnight with 1 and half times maintenance fluids. Urinalysis still pending at the time of our discussion Impression Primary Impression: Dehydration Additional Impressions: Acute kidney injury Hyponatremia Drug-induced hyperkalemia Disposition: ADMITTED INPATIENT Condition: Stable Admissions Decision to Admit Reason: Admit from ER (General) Decision to Admit/Date: March 18, 2022 Time/Decision to Admit Time: 11:10 Departure-Patient Inst. Referrals: [facility] (PCP) Primary Care Physician [facility] (Family) Primary Care Physician [facility] March 18, 2022 11:17
[2022-03-18 11:51] LABS: BACTERIA,URINE NEGATIVE /HPF
[2022-03-18] MEDS ORDERED: ACETAMINOPHEN 325 MG TABLET PO PRN (12:45)
[2022-03-18] MEDS ORDERED: ONDANSETRON 4 MG (ZOFRAN) ORAL DISSOLVE TAB PO PRN (12:45)
[2022-03-18] MEDS ORDERED: MELATONIN 3 MG TABLET PO PRN (12:45)
[2022-03-18] MEDS ORDERED: polyethylene glycoL POWDER 17 GM (MIRALAX) PACK PO PRN (12:45)
[2022-03-18] MEDS ORDERED: diphenhydrAMINE 25 MG TAB (BENADRYL) PO PRN (12:45)
[2022-03-18] MEDS ORDERED: ONDANSETRON 4 MG/2 ML (SDV) Z0FRAN IV PRN (12:45)
[2022-03-18] MEDS ORDERED: ANTACID SUSP 30 ML UDC (MYLANTA) PO PRN (12:45)
[2022-03-18 12:47] VITALS: BP 135/86
[2022-03-18] MEDS: NS IV 1000 ML 1,000 ML IV SCH ×2 (13:02→19:50)
[2022-03-18] MEDS ORDERED: ASCO-262 PO (15:32)
[2022-03-18] MEDS ORDERED: CLN.1T PO (15:32)
[2022-03-18] MEDS ORDERED: ATOR10TA66 PO (15:32)
[2022-03-18] MEDS ORDERED: ONDA-106 PO (15:32)
[2022-03-18] MEDS ORDERED: MELO15TA39 PO (15:32)
[2022-03-18] MEDS ORDERED: POTA99TA18 PO (15:32)
[2022-03-18] MEDS ORDERED: AMLO-251 PO (15:32)
[2022-03-18] MEDS ORDERED: METO100T12 PO (15:32)
[2022-03-18] MEDS ORDERED: RT-ALBUINH IH (15:32)
[2022-03-18] MEDS ORDERED: OMEG1CAP13 PO (15:32)
[2022-03-18 16:03] VITALS: BP 142/78
[2022-03-18 19:47] VITALS: BP 115/65
[2022-03-19] VITALS: BP 117/78
[2022-03-19] MEDS: NS IV 1000 ML 1,000 ML IV SCH (03:48)
[2022-03-19 04:00] VITALS: BP 133/84
[2022-03-19] MEDS ORDERED: KCL 20 MEQ TAB (K-DUR) PO SCH (06:00)
[2022-03-19] MEDS ORDERED: POTASSIUM CL 10MEQ/50ML IVPB 50 ML IV SCH (06:00)
[2022-03-19] MEDS ORDERED: MAGNESIUM 1 GM/100 ML IVPB 100 ML IV SCH (06:00)
[2022-03-19 06:57] LABS: POTASSIUM 4.3 MMOL/L (3.6-5.0)
[2022-03-19 06:58] LABS: CALCIUM 8.7 MG/DL (8.5-10.1)
[2022-03-19 07:19] LABS: CREATININE SERUM 1.11 MG/DL (0.60-1.30); MAGNESIUM 1.9 MG/DL (1.6-2.4)
--- NOTE | 2022-04-08 09:07 | Discharge Summary ---
Discharge Summary Hospital Course Problems/Dx: (1) Hyperkalemia Status: Acute (2) Hyponatremia Status: Acute (3) Acute kidney injury Status: Acute (4) Left against medical advice Status: Acute Hospital Course Date of Admission: March 18, 2022 at 11:23 Admission Diagnosis : Hyperkalemia, Hyponatremia, SILVIANO Family Physician/Provider: [facility] Date of Discharge: 03/19/22 Discharge Diagnosis: Hyperkalemia, Hyponatremia, SILVIANO, left against medical advice Hospital Course: Yohannes Mg Jr is a 36 year old male who presented with muscle spasms and was admitted with dehydration and electrolyte abnormalities. He had been taking po tassium supplements due to his spasms. He was found to be hyponatremic and hyperkalemic. He was also dehydrated as evidenced by elevated creatinine. His electrolytes and kidney function improved with IV fluids. He left against medical advice before being seen. Labs and Pending Lab Test: Home Meds Active Reported Potassium Gluconate 595 Mg (99 Mg) Tablet.er Unknown Dose PO DAILY PRN TAKES 10 TO 20 TABLETS DAILY WHEN CRAMPING Vitamin C (Ascorbate Calcium) 500 Mg Tablet 500 Mg PO DAILY Fish Oil 1,000 mg Softgel ([place]-3 Fatty Acids/Fish Oil) 300 Mg-1,000 Mg Capsule 2 Each PO HS Ondansetron HCl 8 Mg Tablet 8 Mg PO BID PRN Amlodipine Besylate 10 Mg Tablet 10 Mg PO DAILY Meloxicam 15 Mg Tablet 15 Mg PO DAILY Proair Hfa (Albuterol Sulfate) 1 Puff Puff 2 Puff IH Q4H PRN Atorvastatin Calcium 10 Mg Tablet 10 Mg PO HS Metoprolol Tartrate 100 Mg Tablet 100 Mg PO BID Clonidine HCl 0.1 Mg Tablet 0.1 Mg PO BID Pantoprazole Sodium 40 Mg Tablet.dr 40 Mg PO DAILY Assessment/Pt Instructions Left AMA Discharge Planning: <30 minutes discharge planning Discharge Physical Examination Allergies: Coded Allergies: lisinopril (Verified Adverse Reaction, Unknown, 03/18/22) Discharge Summary Date of Admission March 18, 2022 at 11:23 Date of Discharge March 19, 2022 at 05:45 Discharge Date: March 19, 2022 Discharge Time: 05:45 Admission Diagnosis SILVIANO, hyperkalemia, hyponatremia Discharge Diagnosis (1) Hyperkalemia Status: Acute (2) Hyponatremia Status: Acute (3) Acute kidney injury Status: Acute (4) Left against medical advice Status: Acute ABHISHEK STAPLES MD Apr 08, 2022 09:07
== END 2022-03-19 05:45 | disposition left against medical advice (07) ==
LOC: EDUNIT# 09:55 → ER 09:56 → 4TH 11:23
PROVIDERS: ADMIT Internal Medicine; ATTEND Internal Medicine
DX: E87.5 Hyperkalemia (principal); E87.1 Hypo-osmolality and hyponatremia; N17.9 Acute kidney failure, unspecified; E86.0 Dehydration; F17.210 Nicotine dependence, cigarettes, uncomplicated
CPT/HCPCS: 36415; 80048; 80053; 81000; 83735; 85025; 93005; 96360; 96361; G0378

== ENCOUNTER → 2022-10-28 | Outpatient (CLI) | payer MEDICAID ==
[~2022-10-28] MED LIST changes: +ALBU8.5H6 IH; +AMLO-251 PO; +ASCO-262 PO; +ATOR10TA66 PO; +MELO15TA39 PO; +METO100T12 PO; +OMEG1CAP33 PO; +ONDA-106 PO; +POTA99TA18 PO
--- NOTE | 2022-10-28 13:22 | Diagnostic Imaging Report ---
Clinical indication: Patient has been having headaches. Patient with tremors. Exam: MRI of the brain performed without IV contrast. Sequences include axial DWI, ADC map, axial T1, axial T2, axial FLAIR, coronal gradient echo, and sagittal T1 Comparison: None. Findings: There is no evidence of acute cerebral infarct, intracranial hemorrhage, or gross mass effect. The brain parenchymal volume appears appropriate for patient's age. There is small focal area of high T2 signal white matter changes involving the left frontal lobe patton radiata region. Otherwise, the brain parenchyma is unremarkable. There is normal tafoya-white matter distinction. There is no significant midline shift or herniation. The [place] vascular structures show no gross abnormality as visualized. The pituitary gland, sella, and suprasellar regions are unremarkable as visualized. There is no evidence of hydrocephalus. The basal cisterns are unremarkable. The skull, extracranial soft tissue, and orbits are unremarkable. There is minimal mucosal thickening involving both maxillary sinuses and sphenoid sinus. Temporal bones show no significant abnormality. IMPRESSION: 1: There is no evidence of acute intracranial process. 2: There is a single focal area of high T2 signal involving the white matter of the left frontal lobe which is nonspecific. 3: Otherwise, unremarkable MRI of the brain. Dictated by: Dictated on workstation # [id number]
== END ==
LOC: RAD 12:01
PROVIDERS: ATTEND Nurse Practitioner Family
DX: R53.1 Weakness (principal)
CPT/HCPCS: 70551